=== PATIENT | male | born 1955 | race Caucasian/White ===

== ENCOUNTER → 2017-04-05 06:53 | Outpatient (CLI) | payer OTHER, SELFPAY ==
--- NOTE | 2017-04-05 06:59 | MRI_ITS ---
STUDY: MRI LEFT MIDFOOT REASON FOR EXAM: Male, 61 years old. Midfoot pain x3 months. History of surgery the first metatarsus 30 years prior. TECHNIQUE: Standardized fat and water weighted pulse sequences were obtained in all 3 orthogonal planes. COMPARISON: None. FINDINGS: There is an osteochondral defect partially demonstrated of the central and posterior medial talar dome (sagittal STIR series 9, image 12; axial T2 series 5, is 35), with complete loss the hyaline cartilage, cortical flattening, with subcortical marrow reabsorption and microcystic changes. There is no associated marrow edema. There is no demonstrated unstable osteochondral lesion. There is no tibiotalar joint effusion. There is an os trigonum (sagittal T1 series 7, image 16). There is a small volume joint effusion of the posterior subtalar articulation (sagittal STIR series 9, image 17). There is denervation atrophy of the abductor digital minimi muscle (coronal series 5, image 34; sagittal T1 series 7, image 21. The visualized plantar fascia is normal without a demonstrated plantar calcaneal spur. There is ligamentous hypertrophy of the anterior talofibular ligament (coronal T2 series 8, image 8) which may be secondary to a chronic ligamentous strain from posterior tibialis tendon dysfunction versus scarring from remote ankle sprain. 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 Os tibial externum). The study has been performed as a midfoot examination however there is demonstrated tendinosis of the posterior tibialis tendon at its insertion upon the medial pole of the navicular tarsal bone (sagittal STIR series 9, image 8), with minimal tenosynovitis (sagittal STIR series 9, image 8). The visualized flexor digitorum longus tendinous normal. There is a tenosynovitis of the flexor hallucis longus tendon with pooling of fluid in the region of the knot of Jason (sagittal STIR series 9, image 13; axial T2 series 5, image 27, axial series 8, image 16). Normal distal insertion of tibialis anterior tendon. Normal extensor hallucis and extensor digitorum tendons. Normal visualized peroneal tendons. The visualized Achilles tendon is normal. Normal talonavicular articulation. There is a small volume joint effusion of the calcaneocuboid articulation (sagittal STIR series 9, image 22). Normal navicular-cuneiform articulations. Normal intercuneiform articulations. Normal first tarsometatarsal articulation. Normal Lisfranc ligament. Normal second and third tarsometatarsal articulations. Normal cuboid fourth and cuboid fifth tarsometatarsal articulation. There is metallic artifact involving the proximal metaphyseal region of the first metatarsus producing magnetic field distortion. The visualized first metatarsus unremarkable. Normal second, third, fourth, and fifth metatarsi. MRI/Lower Ext/No Jt/w/o IMPRESSION: 1. 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 2. Os trigonum. 3. Prominent medial pole of the navicular tarsal bone consistent with an os navicularis type II. 4. Posterior tibialis tendinosis and tenosynovitis. 5. Flexor hallucis longus tenosynovitis with pooling of fluid within the knot of Jason. 6. Denervation atrophy of the abductor digital minimi muscle but without a demonstrated plantar fasciitis or plantar calcaneal spur. 7. Small volume joint effusion of the calcaneocuboid articulation. 8. Ligamentous hypertrophy of the anterior talofibular ligament (ATFL) which may be secondary to a chronic ligamentous sprain from posterior tibialis tendon dysfunction versus chronic remote ankle sprain. 9. Intact Lisfranc's joint and Lisfranc's ligament. 10. Postsurgical metallic artifact within the first metatarsus. Electronically Signed: Tyrese Sanchez DO at 10:43 EST Tel , Service support ,
--- NOTE | 2017-04-05 07:05 | RAD_ITS ---
STUDY: X-RAY - ORBITS REASON FOR EXAM: Male, 61 years old. This study is being performed as a clearance examination for exclusion of orbital metal, prior to the performance of an MRI examination. Previous metal in his eye TECHNIQUE: 2 view(s) of the orbits were obtained. COMPARISON: None. FINDINGS: Normal bilateral orbits without a metallic orbital foreign body. Normal visualized facial bones. Normal paranasal sinuses. The soft tissue structures are unremarkable. RAD/Orbits for Foreign Body IMPRESSION: No demonstrated metallic orbital foreign body. The patient is cleared for an MRI examination. Electronically Signed: Bernice Sam MD at 7:24 EST , Service support ,
== END ==
PROVIDERS: Visit Provider Podiatrist
DX: M76.822 Posterior tibial tendinitis, left leg (principal); M72.2 Plantar fascial fibromatosis
CPT/HCPCS: 70030; 73718

== ENCOUNTER → 2018-09-27 17:54 | Outpatient (CLI) | payer OTHER, SELFPAY ==
--- NOTE | 2018-09-27 | LES_PTH ---
PATIENT: LEYLA SOLOMON LOC: [facility] U#:[id number] AGE/SX: 69/M ROOM: RE09/27/[address]: Dr. Jim Holman MD : [id number] BED: DIS: SPEC #: [id number] RECD: 09/27/18 17:54 STATUS: PATSY MARTA #: [id number] MARY: 09/27/18 00:[address]: Jim Holman DEPT: SURGICAL PATHOLOGY RECD BY: Pa Castellanos ENTERED: 09/28/18 08:57 SP TYPE: Lesion OTHR DR: Dr. 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 See Comment. SJ:lucien 10/01/18 COMMENT Please make reference to previous specimen [id number] skin lesion left upper eyelid, diagnosis of squamous papilloma, inflamed. MICROSCOPIC DESCRIPTION Slides are reviewed. GROSS DESCRIPTION Received is one container labeled with the patient name and designated left upper lip. The specimen consists of two skin with underlying tissue that in aggregate measure 0.5 x 0.3 x 0.3 cm and 0.4 x 0.2 x 0.2 cm. The entire specimen is submitted in one cassette. KE:lucien 09/28/18 TC: 1 CPT: 63827
== END ==
PROVIDERS: Referring Provider Ophthalmology; Visit Provider Ophthalmology
DX: H02.9 Unspecified disorder of eyelid (principal)
CPT/HCPCS: 88305